=== PATIENT | female | born 1960 | race Two or more races ===

== ENCOUNTER 2022-09-29 14:12 | Outpatient (REF) | payer OTHER, SELFPAY ==
[2022-09-29 20:05] LABS: Influenza A PCR NEGATIVE (Negative); Influenza B PCR NEGATIVE (Negative); Resp Syncy Virus RNA Qual PCR NEGATIVE (Negative); SARS COV2 PCR INHOUSE NEGATIVE (Negative)
== END 2022-09-29 14:13 | disposition home or self-care (01) ==
LOC: HO.LAB 14:12
PROVIDERS: Visit Provider Nurse Practitioner Family
DX: R09.89 Other specified symptoms and signs involving the circulatory and respiratory systems (principal); R53.1 Weakness; Z20.822 Contact with and (suspected) exposure to COVID-19
CPT/HCPCS: 0241U

== ENCOUNTER 2022-09-29 14:56 | Outpatient (REF) | payer OTHER, SELFPAY ==
[2022-09-29 16:37] LABS: MANUAL DIFF FLAG NO
[2022-09-29 16:40] LABS: Basophils Percent Auto 0.5 % (0-2); Eosinophils Absolute Auto 0.4 X10*3/uL (0.0-0.4); Eosinophils Percent Auto 5.4 % (0-4); Hematocrit 40.7 % (37.0-47.0); Hemoglobin 13.4 g/dl (12.0-16.0); Imm Gran Abs Auto 0.02 X10*3/uL (0.00-0.03); Imm Gran Pct Auto 0.3 % (0.0-0.4); Lymphocytes Absolute Auto 3.2 X10*3/uL (1.2-4.9); Lymphocytes Percent Auto 40.9 % (20-40); Mean Corpuscular HGB Conc 32.9 g/dl (31.0-35.0); Mean Corpuscular Hemoglobin 28.2 pg (27.0-33.0); Mean Corpuscular Volume 85.5 fL (80.0-98.0); Mean Platelet Volume 10.8 fL (9.4-12.3); Monocytes Absolute Auto 0.4 X10*3/uL (0.1-1.2); Monocytes Percent Auto 5.6 % (2-11); Neutrophils Absolute Auto 3.7 x10*3/uL (2.0-8.3); Neutrophils Percent Auto 47.3 % (45-73); Platelet Count 285 X10*3/uL (160-400); Red Blood Count 4.76 X10*6/uL (4.20-5.50); Red Cell Distribution Width 12.5 % (11.0-16.0); White Blood Count 7.9 X10*3/uL (4.8-10.8)
[2022-09-29 16:49] LABS: Estimated Average Glucose 105 mg/dL; Hemoglobin A1c % 5.3 %
[2022-09-29 16:59] LABS: Alanine Aminotransferase 11 U/L (0-31); Albumin Level 4.6 g/dL (3.5-5.0); Alkaline Phosphatase 88 U/L (39-117); Anion Gap 13 (12-20); Aspartate Amino Transferase 14 U/L (5-31); Bilirubin Total 0.6 mg/dL (0.0-1.0); Blood Urea Nitrogen 14 mg/dL (9-16); Calcium 10.1 mg/dL (8.4-10.2); Carbon Dioxide 26 mmol/L (22-29); Chloride 106 mmol/L (96-108); Estimated Glomerular Filt Rate > 60; Glucose Random 75 mg/dL (60-115); Potassium 4.1 mmol/L (3.3-5.1); Sodium 141 mmol/L (135-145); Total Protein 7.8 g/dL (6.5-8.0)
[2022-09-29 17:14] LABS: TSH reflex Free T4 1.43 uIU/mL (0.32-4.0)
== END 2022-09-29 14:57 | disposition home or self-care (01) ==
LOC: HO.HMGCLDS 14:56
PROVIDERS: Visit Provider Nurse Practitioner Family
DX: R63.1 Polydipsia (principal); R35.89 Other polyuria; R53.1 Weakness; R09.89 Other specified symptoms and signs involving the circulatory and respiratory systems
CPT/HCPCS: 36415; 80053; 83036; 84443; 85025

== ENCOUNTER 2022-09-29 16:44 | Outpatient (REF) | payer OTHER, SELFPAY ==
[2022-09-29 16:56] LABS: Appearance Urine Clear; Color Urine Yellow; Glucose Urine UA Negative (Negative); Leukocyte Esterase Urine Moderate (2+) (Negative); Nitrite Urine Negative (Negative); Specific Gravity - Urine <= 1.005 (1.005-1.025); UMIC TRIGGER UACC YES; Urine Blood Negative (Negative); Urine Ketones Negative (Negative); Urine Protein Negative (Neg-Trace)
[2022-09-29 16:59] LABS: Bacteria Urine None Seen (None Seen); Hyaline Casts Urine 0-2 /LPF (0-2); RBC Urine 0-2 /HPF (0-2); Squamous Epithelial Cell Urine 0-2 /HPF (0-2); UACC Culture Trigger YES
== END 2022-09-29 16:45 | disposition home or self-care (01) ==
LOC: HO.LNP 16:44
PROVIDERS: Visit Provider Nurse Practitioner Family
DX: R53.1 Weakness (principal); R09.89 Other specified symptoms and signs involving the circulatory and respiratory systems; R63.1 Polydipsia; R35.89 Other polyuria
CPT/HCPCS: 81001; 87086

== ENCOUNTER 2022-12-27 10:38 | Outpatient (AMB) | payer OTHER, SELFPAY ==
--- NOTE | 2022-12-27 10:39 | A.OFFPC_ITS ---
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 Intake Note: OD 20/25 OU 20/25 US 20 Allergies No Known Allergies Allergy (Verified 12/27/22 10:39) Medication List - Last Reconciled 12/27/22 by Zeenat Price MD No Known Home Meds Tobacco use date assessed: 12/27/22 Dental Screening Dental Screen Date: 12/27/22 Did you have a dental visit in the last 12 months?: No Did you have a dental problem in the last 6 months where you did not have access to dental care?: No Was dental information given to patient?: Yes HPI echocardiography radiology technologist Est care HPI Details Patient is a 62-year-old female came in today for establish care and physical examination Patient says that she has a history of high blood pressure, she used to be on medication and then she started when she ran out and stopped going to her doctor. It has been awhile since she has taken medication. Her blood pressure is 130/68, she is here with her daughter, both of them notified to get a blood pressure monitor and start logging blood pressure at home bring the log along next visit Meanwhile observe no salt diet. Patient has been suffering from depression for a while and is requesting assistance with therapy and medication I have sent Lexapro 10 mg tablet patient is to take half a tablet for a week and then full tablet Her BMI is 35.7 patient is obese, and is requesting a dietary consultation. Mammogram is due Pap smear due Colonoscopy due Patient also have intermittent asthma and is requesting ProAir script which was sent for her. I have ordered labs to be done fasting She wanted eye exam which showed 2024 vision both sides On examination her right ear is filled with cerumen she is requesting irrigation of her ear which was provided. She also have a chronic right shoulder pain and for that physical therapy was ordered. Patient will return in 3 weeks for follow-up appointment COUNTS INCLUDE 234 BEDS AT THE [facility] Social History Housing: Apartment Patient Tobacco Use Status: Never used Tobacco e-Cigarette/Vaping Use: Never Used service: No Current occupational status: unemployed Cognitive needs: No Hearing needs: No Vision needs: No Questionnaire PHQ-9 Over the last 2 weeks, how often have you been bothered by any of the following problems? 1. Little interest or pleasure in doing things: not at all 2. Feeling down, depressed, or hopeless: not at all 3. Trouble falling or staying asleep, or sleeping too much: several days 4. Feeling tired or having little energy: several days 5. Poor appetite or overeating: several days 6. Feeling bad about yourself - or that you are a failure or have let yourself or your family down: not at all 7. Trouble concentrating on things, such as reading the newspaper or watching television: not at all 8. Moving or speaking so slowly that other people could have noticed. Or the opposite - being so fidgety or restless that you have been moving around a lot more than usual: not at all 9. Thoughts that you would be better off or of hurting yourself in some way: not at all Total score: 3 Depression Screening Interpretation: Negative 44066 - PHQ-9 Billing: Yes Source: Developed by Drs. Miguel James, Debra Choi, Kevan Faye and colleagues, with an educational susanna from [employer]. Thrive Questionnaire Date Thrive assessed: 12/27/22 I am a: Patient What is your living situation today?: I have a steady place to live Within the past 12 months, did the food you bought not last and you didn't have the money to get more?: Never true Within the past 12 months, did you worry whether your food would run out before you got money to buy more?: Never true Do you have trouble paying for medicines?: No Do you have trouble getting transportation to medical appointments?: No Do you have trouble paying your heating and electricity bill?: No Do you have trouble taking care of your child, family member or friend?: No Do you have trouble with day-to-day activities such as bathing, preparing meals, shopping, managing finances, etc.?: No Are you currently unemployed and looking for a job?: No Are you interested in more education?: No AUDIT C Alcohol Use Questionnaire (AUDIT-C) 1. How often do you have a drink containing alcohol?: Never 3. How often do you have six or more drinks on one occasion?: Never Total Score: 0 Score Reviewed/Action Taken: Yes DAMON-7 AMB Questionnaire DAMON-7 Date DAMON - 7 assessed: 12/27/22 Feeling nervous, anxious, or on edge: 0 = Not at all Not being able to stop or control worryin = Not at all Worrying too much about different things: 2 = More than half the days Trouble relaxin = More than half the days Being so restless that it is hard to sit still: 0 = Not at all Becoming easily annoyed or irritable: 2 = More than half the days Feeling afraid as if something awful might happen: 0 = Not at all Total DAMON-7 score (0-4 normal; 5-9 mild; 10-14 moderate; 15-21 severe): 6 Source: Developed by Drs. Miguel James, Debra Choi, Kevan Faye and colleagues, with an educational susanna from [employer]. DAMON-7 Assessment Billing DAMON-7 Assessment Tool: DAMON-7 Assessment 27355 Review of Systems Const Denies chills, Denies fever(s) and Denies headache(s) Eyes Denies blurry vision ENT Denies headache(s), Denies nasal discharge, Denies nasal obstruction, Denies odynophagia and Denies sinus pain Card Denies chest pain at rest and Denies chest pain with activity Resp Denies cough and Denies hemoptysis GI Denies diarrhea, Denies odynophagia, Denies vomiting and Denies hematemesis Reports as per HPI Musc Denies abnormal gait Skin/Breast Reports as per HPI Neuro Denies Neuro-related abnormal movements, Denies Abnormal speech present, Denies abnormal gait, Denies headache(s) and Denies Sensory deficit (Neuro) Psych Denies mood swings and Denies paranoia Endo Reports as per HPI Brannon/Lymph Reports as per HPI Aller/Immun Reports as per HPI Physical exam (Primary Care) Vital Signs: Last Vital Signs Pulse 70 12/27/22 10:45 BP 130/68 12/27/22 10:45 Pulse Ox 95 12/27/22 10:45 Oxygen Delivery Method Room Air 12/27/22 10:45 BMI result Body Mass Index 35.7 Tobacco/Smoking Status: Tobacco use Status Tobacco use date assessed 12/27/22 12/27/22 10:40 Patient Tobacco Use Status Never used Tobacco 12/27/22 10:40 e-Cigarette/Vaping Use Never Used 12/27/22 10:40 PHQ-9: PHQ-9 Score PHQ-9: Total score 3 12/27/22 11:14 Depression Screening Interpretation: Negative Thrive Assessment: Date of Thrive Assessment Date Thrive assessed 12/27/22 12/27/22 10:50 Const General: cooperative, comfortable and no acute distress Orientation/consciousness: patient oriented x3 HENMT Other: Right ear filled with cerumen Head: Yes normocephalic and Yes atraumatic Eyes General: appearance normal, both eyes and all related structures Pupils: Equal, round and reactive pupils present EOM: EOMs intact bilaterally Neck Neck: Yes supple and No lymphadenopathy Thyroid: Thyroid normal Lymphatic: no lymphadenopathy noted Chest Breast/axilla palpation: normal palpation of the breasts Resp Effort & Inspection: normal respiratory effort and able to speak in complete sentences Auscultation: clear to auscultation bilaterally Cardio Heart sounds: S1 normal heart sound present and S2 normal heart sound present GI Palpation (GI): Soft to palpation and nontender Auscultation: normal bowel sounds General: Yes no CVA tenderness Back/Spine/Pelvis Back: no CVA tenderness Skin General skin exam: elasticity normal and turgor normal Neuro General: patient oriented x3 and gait normal Cranial nerves: Yes Equal, round and reactive pupils present Speech: No Abnormal speech present Sensory Exam: No Sensory deficit (Neuro) Coordination: tandem gait normal and Romberg test negative Extrem General: Yes normal exam except as noted and No edema Office Procedures Cerumen Removal From which ear canal was the cerumen removed: right Removal: irrigation Notes: patient tolerated procedure well, no complications and ear canal clear [id number] Irrigation/Lavage Assessment and Plan Assessment & Plan (1) Encounter for general adult medical examination with abnormal findings: Code(s): Z00.01 - Encounter for general adult medical examination with abnormal findings (2) Shoulder pain, left: Code(s): M25.512 - Pain in left shoulder Qualifiers: Chronicity: chronic Qualified Code(s): M25.512 - Pain in left shoulder; G89.29 - Other chronic pain (3) Obesity due to excess calories: Code(s): E66.09 - Other obesity due to excess calories Qualifiers: Body mass index: BMI 35.0-35.9 Obesity classification: adult class 2 (BMI 35 - 39.9) Serious obesity comorbidity presence: with serious comorbidity Qualified Code(s): E66.01 - Morbid (severe) obesity due to excess calories; Z68.35 - Body mass index [BMI] 35.0-35.9, adult (4) Major depression, recurrent: Code(s): F33.9 - Major depressive disorder, recurrent, unspecified Qualifiers: Active/Remission status: currently active Major depression episode severity: moderate Qualified Code(s): F33.1 - Major depressive disorder, recurrent, moderate (5) Elevated blood pressure reading: Code(s): R03.0 - Elevated blood-pressure reading, without diagnosis of hypertension (6) Asthma, mild intermittent: Code(s): J45.20 - Mild intermittent asthma, uncomplicated Qualifiers: Asthma complication type: uncomplicated Qualified Code(s): J45.20 - Mild intermittent asthma, uncomplicated (7) Impacted cerumen, right ear: Code(s): H61.21 - Impacted cerumen, right ear (8) Colon cancer screening: Code(s): Z12.11 - Encounter for screening for malignant neoplasm of colon Plan Patient is a 62-year-old female came in today for establish care and physical examination Patient says that she has a history of high blood pressure, she used to be on medication and then she started when she ran out and stopped going to her doctor. It has been awhile since she has taken medication. Her blood pressure is 130/68, she is here with her daughter, both of them no tified to get a blood pressure monitor and start logging blood pressure at home bring the log along next visit Meanwhile observe no salt diet. Patient has been suffering from depression for a while and is requesting assistance with therapy and medication I have sent Lexapro 10 mg tablet patient is to take half a tablet for a week and then full tablet Her BMI is 35.7 patient is obese, and is requesting a dietary consultation. Mammogram is due Pap smear due Colonoscopy due Patient also have intermittent asthma and is requesting ProAir script which was sent for her. I have ordered labs to be done fasting She wanted eye exam which showed 2024 vision both sides On examination her right ear is filled with cerumen she is requesting irrigation of her ear which was provided. She also have a chronic right shoulder pain and for that physical therapy was ordered. Patient will return in 3 weeks for follow-up appointment Orders: Orders Complete Blood Count Auto Diff Today E66.09 - Other obesity due to excess calories, F33.9 - Major depressive disorder, recurrent, unspecified, H61.21 - Impacted cerumen, right ear, J45.20 - Mild intermittent asthma, uncomplicated, M25.512 - Pain in left shoulder, R03.0 - Elevated blood-pressure reading, without diagnosis of hypertension, Z00.01 - Encounter for general adult medical examination with abnormal findings Lipid Panel Today E66.09 - Other obesity due to excess calories, F33.9 - Major depressive disorder, recurrent, unspecified, H61.21 - Impacted cerumen, right ear, J45.20 - Mild intermittent asthma, uncomplicated, M25.512 - Pain in left shoulder, R03.0 - Elevated blood-pressure reading, without diagnosis of hypertension, Z00.01 - Encounter for general adult medical examination with abnormal findings PT Evaluation and Treatment Today M25.512 - Pain in left shoulder Comprehensive [place]. Panel Fast Today E66.09 - Other obesity due to excess calories, F33.9 - Major depressive disorder, recurrent, unspecified, H61.21 - Impacted cerumen, right ear, J45.20 - Mild intermittent asthma, uncomplicated, M25.512 - Pain in left shoulder, R03.0 - Elevated blood-pressure reading, without diagnosis of hypertension, Z00.01 - Encounter for general adult medical examination with abnormal findings TSH reflex Free T4 Today E66.09 - Other obesity due to excess calories, F33.9 - Major depressive disorder, recurrent, unspecified, H61.21 - Impacted cerumen, right ear, J45.20 - Mild intermittent asthma, uncomplicated, M25.512 - Pain in left shoulder, R03.0 - Elevated blood-pressure reading, without diagnosis of hypertension, Z00.01 - Encounter for general adult medical examination with abnormal findings MM tomosynthesis screening BI Today Z12.31 - Encounter for screening mammogram for malignant neoplasm of breast Referrals [facility] Referral Z01.419 - Encounter for gynecological examination (general) (routine) without abnormal findings Gastroenterology Referral Z12.11 - Encounter for screening for malignant neoplasm of colon Medications: New albuterol sulfate 90 mcg/actuation (ProAir HFA) 1 inh inhalation QID PRN 18 grams 0RF shortness of breath or wheezing 30 days escitalopram oxalate (Lexapro) 10 mg PO DAILY 30 tabs 0RF Coding Level of Care Code New Pt Prev Care 40-64y(49242) Diagnoses Encounter for general adult medical examination with abnormal findings Z00.01 Chronic left shoulder pain M25.512; G89.29 Chronicity: chronic Class 2 severe obesity due to excess calories with serious comorbidity and body mass index (BMI) of 35.0 to 35.9 in adult E66.01; Z68.35 Body mass index: BMI 35.0-35.9 Obesity classification: adult class 2 (BMI 35 - 39.9) Serious obesity comorbidity presence: with serious comorbidity Moderate episode of recurrent major depressive disorder F33.1 Active/Remission status: currently active Major depression episode severity: moderate Elevated blood pressure reading R03.0 Mild intermittent asthma without complication J45.20 Asthma complication type: uncomplicated Impacted cerumen, right ear H61.21 Colon cancer screening Z12.11 CPT Codes Vision Screening - Vision Screenin - Vision Screening ([id number]) Office Procedure - CPT: 00453-Xng Irrigation/Lavage ([id number]) Additional Codes DAMON-7 Assessment Billing - DAMON-7 Assessment Tool: DAMON-7 Assessment 23443 ([id number]) Vision Screening Right Eye: 20/25 Left Eye: 20/25 Bilateral: 20/25 Comments: Uncorrected 20/25 86601 - Vision Screening
[2022-12-27 10:45] VITALS: BP 130/68; PULSE 70; O2SAT 95; BMI 35.7
== END 2022-12-27 11:23 | disposition home or self-care (01) ==
PROVIDERS: Visit Provider Internal Medicine
DX: Z00.00 Encounter for general adult medical examination without abnormal findings (principal); E66.01 Morbid (severe) obesity due to excess calories; Z68.35 Body mass index [BMI] 35.0-35.9, adult; H61.21 Impacted cerumen, right ear; Z01.00 Encounter for examination of eyes and vision without abnormal findings; F33.1 Major depressive disorder, recurrent, moderate; J45.20 Mild intermittent asthma, uncomplicated; M25.512 Pain in left shoulder; G89.29 Other chronic pain; R03.0 Elevated blood-pressure reading, without diagnosis of hypertension
CPT/HCPCS: 69209; 99173; 99386

== ENCOUNTER 2023-01-11 16:00 | Outpatient (RCR) | payer OTHER, SELFPAY ==
--- NOTE | 2023-01-06 14:38 | MHC.PT.EP ---
[facility] [place] Office [place] Office [place] Office [address] [phone] F: [phone] F: [phone] F: [phone] F: [phone] Physical Therapy Plan of Care Date of Evaluation: 01/06/23 Date of Surgery: none Diagnosis: Pain in R shoulder Assessment: Patient is a 62 year old R handed female who presents with s/s consistent with R shoulder pain. 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 Patient past medical history is unremarkable. Current impairments include pain, posture, ROM, strength, activity tolerance and functional mobility. Functional limitations include decreased ability to sleep, dress, lift, carry, push and pull. Patient is motivated with good rehab potential. Skilled PT will address impairments and functional limitations in order to achieve goals. Frequency and Duration: The patient will be seen 2x/week for 5 weeks Short Term Goals: I with HEP - 2 weeks AROM full and pain free - 3 weeks Pain free don/doff cloths and sleeping - 3 weeks Detention Goals: SPADI 20/130 or better - 5 weeks Strength 4+/5 grossly - 5 weeks Pain free return to all daily activities - 5 weeks Treatment Plan: Modalities to reduce pain, spasms and effusion. Manual therapy to restore motion and function. Therapeutic exercise to improve strength and flexibility. Neuromuscular re-education for posture and balance. Therapeutic activities to return to functional activities of daily living. Electronically signed by: Naeem Arias, PT Please sign and return to therapist. Thank you for your referral.
--- NOTE | 2023-04-18 07:53 | MHC.PT.DC ---
[facility] [place] Office [place] Office [place] Office [address] Oliverio Dixon [address] [phone] F: [phone] F: [phone] F: [phone] F: [phone] Physical Therapy Discharge Report Diagnosis: Pain in R shoulder Date of Surgery: none Date of Evaluation: 01/06/23 Date of Discharge: 03/04/23 Treatments to Date: 2 Cancellations to Date: No Shows to Date: Discharge Status: Independent with HEP Discharge Summary: Pt ROM WNL and is pain free with all exs. Pt only had fatigue after PRE's. Pt wishes to be her last visit due to no pain and having normal ROM. Pt DC with PRE's Patient is a 62 year old R handed female who presents with s/s consistent with R shoulder pain. 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 Patient past medical history is unremarkable. Current impairments include pain, posture, ROM, strength, activity tolerance and functional mobility. Functional limitations include decreased ability to sleep, dress, lift, carry, push and pull. Patient is motivated with good rehab potential. Skilled PT will address impairments and functional limitations in order to achieve goals. Electronically signed by: Naeem Arias, PT Please sign and return to therapist. Thank you for your referral.
== END 2023-04-18 07:53 | disposition home or self-care (01) ==
LOC: HO.PTCHIC 16:00
PROVIDERS: PCP Internal Medicine; Visit Provider Internal Medicine
DX: M25.511 Pain in right shoulder (principal)
CPT/HCPCS: 97110; 97161

== ENCOUNTER 2023-02-18 07:30 | Outpatient (REF) | payer OTHER, SELFPAY ==
[2023-02-18 11:07] LABS: MANUAL DIFF FLAG NO
[2023-02-18 11:11] LABS: Basophils Percent Auto 0.3 % (0-2); Eosinophils Absolute Auto 0.2 X10*3/uL (0.0-0.4); Eosinophils Percent Auto 3.4 % (0-4); Hematocrit 38.8 % (37.0-47.0); Hemoglobin 12.7 g/dl (12.0-16.0); Imm Gran Abs Auto 0.01 X10*3/uL (0.00-0.03); Imm Gran Pct Auto 0.2 % (0.0-0.4); Lymphocytes Absolute Auto 2.2 X10*3/uL (1.2-4.9); Lymphocytes Percent Auto 38.4 % (20-40); Mean Corpuscular HGB Conc 32.7 g/dl (31.0-35.0); Mean Corpuscular Hemoglobin 28.2 pg (27.0-33.0); Mean Corpuscular Volume 86.2 fL (80.0-98.0); Mean Platelet Volume 11.3 fL (9.4-12.3); Monocytes Absolute Auto 0.3 X10*3/uL (0.1-1.2); Monocytes Percent Auto 5.5 % (2-11); Neutrophils Percent Auto 52.2 % (45-73); Platelet Count 284 X10*3/uL (160-400); Red Cell Distribution Width 12.8 % (11.0-16.0); White Blood Count 5.8 X10*3/uL (4.8-10.8)
[2023-02-18 11:31] LABS: Alanine Aminotransferase 10 U/L (0-31); Albumin Level 4.2 g/dL (3.5-5.0); Alkaline Phosphatase 85 U/L (39-117); Anion Gap 12 (12-20); Aspartate Amino Transferase 13 U/L (5-31); Bilirubin Total 0.5 mg/dL (0.0-1.0); Blood Urea Nitrogen 11 mg/dL (9-16); Calcium 9.4 mg/dL (8.4-10.2); Carbon Dioxide 25 mmol/L (22-29); Chloride 109 mmol/L (96-108); Cholesterol 194 mg/dL (<200); Estimated Glomerular Filt Rate > 60; Glucose Fasting 102 mg/dL (60-99); HDL Cholesterol 47 mg/dL (>40); LDL Cholesterol Calculated 127 mg/dL (<100); Potassium 4.1 mmol/L (3.3-5.1); Sodium 142 mmol/L (135-145); Total Protein 7.1 g/dL (6.5-8.0); Triglycerides 104 mg/dL (<150)
[2023-02-18 11:51] LABS: TSH reflex Free T4 1.27 uIU/mL (0.32-4.0)
== END 2023-02-18 07:31 | disposition home or self-care (01) ==
LOC: HO.HMGCLDS 07:30
PROVIDERS: PCP Internal Medicine; Visit Provider Internal Medicine
DX: Z00.01 Encounter for general adult medical examination with abnormal findings (principal); E66.09 Other obesity due to excess calories; F33.9 Major depressive disorder, recurrent, unspecified; M25.512 Pain in left shoulder; R03.0 Elevated blood-pressure reading, without diagnosis of hypertension; J45.20 Mild intermittent asthma, uncomplicated; H61.21 Impacted cerumen, right ear
CPT/HCPCS: 36415; 80053; 80061; 84443; 85025

== ENCOUNTER 2023-02-22 15:55 | Outpatient (AMB) | payer OTHER, SELFPAY ==
--- NOTE | 2023-02-22 15:57 | MHC.OFFVIS ---
Intake Vital Signs 02/22/23 16:01 Height 5 ft 2 in Weight 194 lb 0.108 oz BMI 35.5 BP 165/72 H Blood Pressure Location Lt brachial Position Sitting Pulse 66 Intake Visit Reasons: Colonoscopy Screening Intake Note: Patient presents to in office visit today as a new patient for colonoscopy screening. CC: Patient denies having any GI concerns or symptoms today. She has never had a colonoscopy done before. Allergies No Known Allergies Allergy (Verified 02/22/23 16:04) HPI Colonoscopy Screening HPI Details 62 year old? female here today for pre colonoscopy screening.? Patient was sent to us by her PCP.? This is her first colonoscopy screening.? Patient denies any gastrointestinal symptoms in the past or at present.? Denies any personal or family history of gastrointestinal disease, colon polyps, or cancer.? Denies history of difficulty with sedation or anesthesia in the past.? Negative for history of sleep apnea.? Denies any history of cardiac, renal, pulmonary, or hepatic disease.?? No history of infectious? diseases like hepatitis A, B, C, HIV or tuberculosis.? Patient is not on any anticoagulation therapy. [facility] Surgical History (Updated 02/22/23 @ 16:05 by EULALIA Friend) No pertinent past surgical history Family History (Updated 02/22/23 @ 16:05 by EULALIA Friend) Father Brain cancer Housing: Apartment Patient Tobacco Use Status: Never used Tobacco e-Cigarette/Vaping Use: Never Used service: No Current occupational status: unemployed Cognitive needs: No Hearing needs: No Vision needs: No Review of Systems Const Denies weight gain and Denies weight loss ENT Reports no additional complaints, Denies dysphagia and Denies odynophagia Card Reports no additional complaints Resp Reports no additional complaints GI Denies abdominal pain, Denies belching, Denies melena, Denies bloating, Denies change in bowel habits, Denies dysphagia, Denies excessive flatus, Denies dyspepsia, Denies heartburn, Denies diarrhea, Denies loose stools, Denies nausea, Denies odynophagia and Denies vomiting Musc Reports no additional complaints Neuro Reports no additional complaints Psych Reports no additional complaints Endo Reports no additional complaints Physical Exam Vital Signs: Last Vital Signs Pulse 66 02/22/23 16:01 BP 165/72 H 02/22/23 16:01 BMI result Body Mass Index 35.5 Const General: healthy appearing, no acute distress and well developed Nutritional Appearance: well nourished Orientation/consciousness: patient oriented x3 HEENT Head: Yes normal to inspection, Yes normocephalic and Yes atraumatic Face and sinus: Yes normal facial exam Mouth: Normal oral and palatal mucosa present Throat: Yes posterior oropharynx normal, Yes tonsils normal and Yes uvula midline Eyes General: appearance normal, both eyes and all related structures Neck Neck: Yes normal visual inspection, Yes full ROM and Yes trachea midline Thyroid: Thyroid normal Resp Effort & Inspection: normal respiratory effort, able to speak in complete sentences, no tracheal deviation and symmetric chest movement Auscultation: clear to auscultation bilaterally Cardio Rate: regular rate Heart sounds: S1 normal heart sound present and S2 normal heart sound present GI Inspection: Yes normal to inspection, No distended and Yes obesity Palpation (GI): Soft to palpation, not firm, nontender and No hepatosplenomegaly present Auscultation: normal bowel sounds General: Yes no CVA tenderness Back/Spine/Pelvis Back: no CVA tenderness Skin General skin exam: elasticity normal, turgor normal and dry skin Neuro General: patient oriented x3 Psych Appearance: grossly normal Mental Status: mental status grossly normal Thought process: Normal thought process present Assessment & Plan Assessment & Plan (1) Colon cancer screening: Code(s): Z12.11 - Encounter for screening for malignant neoplasm of colon Plan Patient denies any GI, cardiac or respiratory symptoms.? Denies any issues with anesthesia in the past.? Denies any history of sleep apnea.? No history infectious diseases in the past or present.? Not on any anticoagulation therapy.? No family or personal history of colon cancer or polyps.? Patient denies melena, hematochezia, unintentional weight loss or ribbon like stools.? Discussed at length the pre-procedure,? prep, diet & medications as well as what to expect prior, during and after the procedure.?? Stressed the importance of good bowel prep. ?Recommended the use of Vaseline or Calmoseptine OTC & baby wipes with bowel movements to promote comfort.? ?Patient verbalizes understanding and agrees to plan of care.? She was given the opportunity to ask questions and all questions answered.? We will see her after the procedure.? Medications: New bisacodyl (Dulcolax (bisacodyl)) take 4 tabs at noon the day before your colonoscopy 20 mg (4 x 5 mg) PO ONCE 1 day 4 tabs 0RF Z12.11 - Encounter for screening for malignant neoplasm of colon polyethylene glycol 3350 (Miralax) As directed by gastroenterology department at [facility] 238 grams PO ONCE 238 grams 0RF Z12.11 - Encounter for screening for malignant neoplasm of colon Coding Level of Care Code New Pt Level 3 (88410) Diagnoses Colon cancer screening Z12.11 Time Spent (min) 40 Comment 30 minutes spent with patient and additional 10 minutes spent reviewing her records
[2023-02-22 16:01] VITALS: BP 165/72; PULSE 66; BMI 35.5
== END 2023-02-22 16:48 | disposition home or self-care (01) ==
PROVIDERS: PCP Internal Medicine; Visit Provider Nurse Practitioner Family
DX: Z12.11 Encounter for screening for malignant neoplasm of colon (principal); Z01.818 Encounter for other preprocedural examination
CPT/HCPCS: S0285

== ENCOUNTER → 2023-02-22 15:55 | Outpatient (BNVA) | payer OTHER, SELFPAY | PROVIDERS: PCP Internal Medicine; Visit Provider Nurse Practitioner Family ==

== ENCOUNTER 2023-04-07 13:58 | Outpatient (AMB) | payer OTHER, SELFPAY ==
[2023-04-07 14:17] VITALS: BP 130/82; PULSE 68; O2SAT 98; BMI 35.8
--- NOTE | 2023-04-07 14:17 | MHC.PC.OV ---
Vital Signs 04/07/23 14:17 Height 5 ft 2 in Weight 195 lb 8 oz BMI 35.8 BP 130/82 Blood Pressure Location Lt brachial Position Sitting Pulse 68 Pulse Source Pulse Oximeter Pulse Oximetry (%) 98 Oxygen Delivery Method Room Air Intake Visit Reasons: 3 month Follow up Allergies No Known Allergies Allergy (Verified 04/07/23 14:20) Medication List - Last Reconciled 04/07/23 by Zeenat Price MD albuterol sulfate 90 mcg/actuation (ProAir HFA) 1 inh inhalation QID PRN 30 days bisacodyl (Dulcolax (bisacodyl)) 20 mg (4 x 5 mg) PO ONCE 1 day escitalopram oxalate (Lexapro) 10 mg PO DAILY polyethylene glycol 3350 (Miralax) 238 grams PO ONCE Tobacco use date assessed: 04/07/23 Dental Screening Dental Screen Date: 04/07/23 Did you have a dental visit in the last 12 months?: No Did you have a dental problem in the last 6 months where you did not have access to dental care?: No Was dental information given to patient?: Patient has dentist HPI 3 month Follow up HPI Details Patient is 62-year-old female came today for follow-up appointment Anxiety/depression is better with Lexapro however patient ran out of medication in February and could not get the refill, I have sent the refill again patient was on 10 mg and responded well to medication I am sending 20 mg she may take half a tablet for couple of weeks and then 20 mg tablet. Intermittent asthma is stable she is using albuterol inhaler sometimes 2 times a week and sometimes not at all BMI is elevated need to lose weight She also have impaired fasting sugar We will be repeating labs again before next visit in 4 months Blood pressure is in prehypertensive range she has taking no medication currently. [facility] Surgical History No pertinent past surgical history Family History Father Brain cancer Social History Housing: Apartment Patient Tobacco Use Status: Never used Tobacco e-Cigarette/Vaping Use: Never Used service: No Current occupational status: unemployed Cognitive needs: No Hearing needs: No Vision needs: No Questionnaire PHQ-9 Over the last 2 weeks, how often have you been bothered by any of the following problems? 1. Little interest or pleasure in doing things: not at all 2. Feeling down, depressed, or hopeless: not at all 3. Trouble falling or staying asleep, or sleeping too much: not at all 4. Feeling tired or having little energy: not at all 5. Poor appetite or overeating: not at all 6. Feeling bad about yourself - or that you are a failure or have let yourself or your family down: not at all 7. Trouble concentrating on things, such as reading the newspaper or watching television: not at all 8. Moving or speaking so slowly that other people could have noticed. Or the opposite - being so fidgety or restless that you have been moving around a lot more than usual: not at all 9. Thoughts that you would be better off or of hurting yourself in some way: not at all Total score: 0 Depression Screening Interpretation: Negative Depression Screening Done: Yes 80192 - PHQ-9 Billing: Yes Source: Developed by Drs. Miguel James, Debra Choi, Kevan Faye and colleagues, with an educational susanna from [employer]. Thrive Questionnaire Date Thrive assessed: 04/07/23 I am a: Patient What is your living situation today?: I have a steady place to live Within the past 12 months, did the food you bought not last and you didn't have the money to get more?: Never true Within the past 12 months, did you worry whether your food would run out before you got money to buy more?: Never true Do you have trouble paying for medicines?: No Do you have trouble getting transportation to medical appointments?: No Do you have trouble paying your heating and electricity bill?: No Do you have trouble taking care of your child, family member or friend?: No Do you have trouble with day-to-day activities such as bathing, preparing meals, shopping, managing finances, etc.?: No Are you currently unemployed and looking for a job?: No Are you interested in more education?: No Please select the resources that you would like help with: None Currently or been in a relationship where the following occur: no concerns reported AUDIT C Alcohol Use Questionnaire (AUDIT-C) 1. How often do you have a drink containing alcohol?: 2-4 times a month 2. How many drinks containing alcohol do you have on a typical day when you are drinking?: 1 or 2 3. How often do you have six or more drinks on one occasion?: Never Total Score: 2 Score Reviewed/Action Taken: Yes DAMON-7 AMB Questionnaire DAMON-7 Date DAMON - 7 assessed: 04/07/23 Feeling nervous, anxious, or on edge: 2 = More than half the days Not being able to stop or control worryin = More than half the days Worrying too much about different things: 1 = Several days Trouble relaxin = Not at all Being so restless that it is hard to sit still: 0 = Not at all Becoming easily annoyed or irritable: 1 = Several days Feeling afraid as if something awful might happen: 0 = Not at all Total DAMON-7 score (0-4 normal; 5-9 mild; 10-14 moderate; 15-21 severe): 6 Source: Developed by Drs. Miguel James, Debra Choi, Kevan Faye and colleagues, with an educational susanna from [employer]. DAMON-7 Assessment Billing DAMON-7 Assessment Tool: DAMON-7 Assessment 69367 Review of Systems Const Denies chills and Denies fever(s) ENT Denies epistaxis and Denies nasal discharge Card Denies chest pain Resp Denies chest congestion, Denies cough and Denies hemoptysis GI Denies diarrhea and Denies nausea Skin/Breast Denies rash Neuro Reports no additional complaints Psych Reports no additional complaints Endo Reports no additional complaints Physical exam (Primary Care) Vital Signs: Last Vital Signs Pulse 68 04/07/23 14:17 BP 130/82 04/07/23 14:17 Pulse Ox 98 04/07/23 14:17 Oxygen Delivery Method Room Air 04/07/23 14:17 BMI result Body Mass Index 35.8 Tobacco/Smoking Status: Tobacco use Status Tobacco use date assessed 04/07/23 04/07/23 14:21 Patient Tobacco Use Status Never used Tobacco 04/07/23 14:21 e-Cigarette/Vaping Use Never Used 04/07/23 14:21 PHQ-9: PHQ-9 Score PHQ-9: Total score 0 04/07/23 14:54 Depression Screening Interpretation: Negative Thrive Assessment: Date of Thrive Assessment Date Thrive assessed 04/07/23 04/07/23 14:54 Currently or been in a relationship where the following occur: no concerns reported Const General: cooperative, comfortable and no acute distress Orientation/consciousness: patient oriented x3 HENMT Head: Yes normocephalic Eyes General: appearance normal, both eyes and all related structures Neck Neck: Yes supple Resp Effort & Inspection: normal respiratory effort, no cough and no stridor Cardio Rhythm: regular rhythm Heart sounds: S1 normal heart sound present and S2 normal heart sound present Skin General skin exam: turgor normal Neuro General: patient oriented x3, tone normal and moves all extremities Extrem Right lower extremity: no edema Left lower extremity: no edema Assessment and Plan Assessment & Plan (1) Major depression, recurrent: Code(s): F33.9 - Major depressive disorder, recurrent, unspecified Qualifiers: Active/Remission status: currently active Major depression episode severity: moderate Qualified Code(s): F33.1 - Major depressive disorder, recurrent, moderate (2) Obesity due to excess calories: Code(s): E66.09 - Other obesity due to excess calories Qualifiers: Obesity classification: adult class 2 (BMI 35 - 39.9) Serious obesity comorbidity presence: with serious comorbidity Body mass index: BMI 35.0-35.9 Qualified Code(s): E66.01 - Morbid (severe) obesity due to excess calories; Z68.35 - Body mass index [BMI] 35.0-35.9, adult (3) Asthma, mild intermittent: Code(s): J45.20 - Mild intermittent asthma, uncomplicated Qualifiers: Asthma complication type: uncomplicated Qualified Code(s): J45.20 - Mild intermittent asthma, uncomplicated (4) Impaired fasting blood sugar: Code(s): R73.01 - Impaired fasting glucose Plan Patient is 62-year-old female came today for follow-up appointment Anxiety/depression is better with Lexapro however patient ran out of medication in February and could not get the refill, I have sent the refill again patient was on 10 mg and responded well to medication I am sending 20 mg she may take half a tablet for couple of weeks and then 20 mg tablet. Intermittent asthma is stable she is using albuterol inhaler sometimes 2 times a week and sometimes not at all BMI is elevated need to lose weight She also have impaired fasting sugar We will be repeating labs again before next visit in 4 months Blood pressure is in prehypertensive range she has taking no medication currently. Medications: New albuterol sulfate 90 mcg/actuation (Ventolin HFA) 1 inh inhalation QID 30 days PRN 6.7 grams 6RF shortness of breath or wheezing Changed From escitalopram oxalate (Lexapro) 10 mg PO DAILY 90 tabs 1RF To escitalopram oxalate 20 mg PO DAILY 90 tabs 1RF Refilled escitalopram oxalate (Lexapro) 10 mg PO DAILY 90 tabs 1RF Coding Level of Care Code Est Pt Level 4 (97964) Diagnoses Moderate episode of recurrent major depressive disorder F33.1 Active/Remission status: currently active Major depression episode severity: moderate Class 2 severe obesity due to excess calories with serious comorbidity and body mass index (BMI) of 35.0 to 35.9 in adult E66.01; Z68.35 Obesity classification: adult class 2 (BMI 35 - 39.9) Serious obesity comorbidity presence: with serious comorbidity Body mass index: BMI 35.0-35.9 Mild intermittent asthma without complication J45.20 Asthma complication type: uncomplicated Impaired fasting blood sugar R73.01 Additional Codes DAMON-7 Assessment Billing - DAMON-7 Assessment Tool: DAMON-7 Assessment [id number] ([id number])
== END 2023-04-07 14:42 | disposition home or self-care (01) ==
PROVIDERS: Visit Provider Internal Medicine
DX: F33.1 Major depressive disorder, recurrent, moderate (principal); E66.01 Morbid (severe) obesity due to excess calories; Z68.35 Body mass index [BMI] 35.0-35.9, adult; J45.20 Mild intermittent asthma, uncomplicated; R73.01 Impaired fasting glucose
CPT/HCPCS: 99214

== ENCOUNTER 2023-08-25 12:00 | Outpatient (AMB) | payer OTHER, SELFPAY ==
--- NOTE | 2023-08-25 12:01 | MHC.PC.OV ---
Vital Signs 08/25/23 12:04 Height 5 ft 2 in Weight 185 lb BMI 33.8 BP 120/90 H Blood Pressure Location Lt brachial Position Sitting Pulse 68 Pulse Source Pulse Oximeter Pulse Oximetry (%) 97 Oxygen Delivery Method Room Air Intake Visit Reasons: 6 month follow up Allergies No Known Allergies Allergy (Verified 04/07/23 14:20) Medication List - Last Reconciled 08/25/23 by Zeenat Price MD albuterol sulfate 90 mcg/actuation (Ventolin HFA) 1 inh inhalation QID PRN 30 days bisacodyl (Dulcolax (bisacodyl)) 20 mg (4 x 5 mg) PO ONCE 1 day escitalopram oxalate 20 mg PO DAILY polyethylene glycol 3350 (Miralax) 238 grams PO ONCE Tobacco use date assessed: 04/07/23 Dental Screening Dental Screen Date: 04/07/23 HPI 6 month follow up HPI Details Patient is 63-year-old female came in today for her regular follow-up Patient has stopped using Lexapro, patient says that she was feeling blunted emotions with the medication She has no anxiety or depression at this time She is using ProAir inhaler as needed and is doing well Requesting medication for allergies which I have sent for her Patient has impaired fasting sugar, I have ordered labs for her to be done today. Need to lose weight BMI is elevated at 33.8 She has appointment in January for physical exam. Offer no other complaints PFSH Surgical History No pertinent past surgical history Family History Father Brain cancer Social History Housing: Apartment Patient Tobacco Use Status: Never used Tobacco e-Cigarette/Vaping Use: Never Used service: No Current occupational status: unemployed Cognitive needs: No Hearing needs: No Vision needs: No Questionnaire Thrive Questionnaire Date Thrive assessed: 04/07/23 DAMON-7 AMB Questionnaire DAMON-7 Date DAMON - 7 assessed: 04/07/23 Source: Developed by Drs. Miguel Jamse, Debra Choi, Kevan Faye and colleagues, with an educational susanna from [employer]. Review of Systems Const Denies chills and Denies fever(s) ENT Denies epistaxis and Denies nasal discharge Card Denies chest pain Resp Denies chest congestion, Denies cough and Denies hemoptysis GI Denies diarrhea and Denies nausea Skin/Breast Denies rash Neuro Reports no additional complaints Psych Reports no additional complaints Endo Reports no additional complaints Physical exam (Primary Care) Vital Signs: Last Vital Signs Pulse 68 08/25/23 12:04 BP 120/90 H 08/25/23 12:04 Pulse Ox 97 08/25/23 12:04 Oxygen Delivery Method Room Air 08/25/23 12:04 BMI result Body Mass Index 33.8 Tobacco/Smoking Status: Tobacco use Status Tobacco use date assessed 04/07/23 08/25/23 12:03 Patient Tobacco Use Status Never used Tobacco 08/25/23 12:03 e-Cigarette/Vaping Use Never Used 08/25/23 12:03 Thrive Assessment: Date of Thrive Assessment Date Thrive assessed 04/07/23 08/25/23 12:03 Const General: cooperative, comfortable and no acute distress Orientation/consciousness: patient oriented x3 HENMT Head: Yes normocephalic Eyes General: appearance normal, both eyes and all related structures Neck Neck: Yes supple Resp Effort & Inspection: normal respiratory effort, no cough and no stridor Cardio Rhythm: regular rhythm Heart sounds: S1 normal heart sound present and S2 normal heart sound present Skin General skin exam: turgor normal Neuro General: patient oriented x3, tone normal and moves all extremities Extrem Right lower extremity: no edema Left lower extremity: no edema Assessment and Plan Assessment & Plan (1) Major depression, recurrent: Code(s): F33.9 - Major depressive disorder, recurrent, unspecified Qualifiers: Active/Remission status: in full remission Qualified Code(s): F33.42 - Major depressive disorder, recurrent, in full remission (2) Obesity due to excess calories: Code(s): E66.09 - Other obesity due to excess calories Qualifiers: Body mass index: BMI 35.0-35.9 Obesity classification: adult class 2 (BMI 35 - 39.9) Serious obesity comorbidity presence: with serious comorbidity Qualified Code(s): E66.01 - Morbid (severe) obesity due to excess calories; Z68.35 - Body mass index [BMI] 35.0-35.9, adult (3) Elevated blood pressure reading: Code(s): R03.0 - Elevated blood-pressure reading, without diagnosis of hypertension (4) Asthma, mild intermittent: Code(s): J45.20 - Mild intermittent asthma, uncomplicated Qualifiers: Asthma complication type: uncomplicated Qualified Code(s): J45.20 - Mild intermittent asthma, uncomplicated (5) Impaired fasting blood sugar: Code(s): R73.01 - Impaired fasting glucose (6) Environmental allergies: Code(s): Z91.09 - Other allergy status, other than to drugs and biological substances Plan Patient is 63-year-old female came in today for her regular follow-up Patient has stopped using Lexapro, patient says that she was feeling blunted emotions with the medication She has no anxiety or depression at this time She is using ProAir inhaler as needed and is doing well Requesting medication for allergies which I have sent for her Patient has impaired fasting sugar, I have ordered labs for her to be done today. Need to lose weight BMI is elevated at 33.8 She has appointment in January for physical exam. Offer no other complaints Orders: Orders Complete Blood Count Auto Diff Today E66.01 - Morbid (severe) obesity due to excess calories, F33.1 - Major depressive disorder, recurrent, moderate, J45.20 - Mild intermittent asthma, uncomplicated, R03.0 - Elevated blood-pressure reading, without diagnosis of hypertension, R73.01 - Impaired fasting glucose, Z68.35 - Body mass index [BMI] 35.0-35.9, adult Comprehensive Met. Panel Today E66.01 - Morbid (severe) obesity due to excess calories, F33.1 - Major depressive disorder, recurrent, moderate, J45.20 - Mild intermittent asthma, uncomplicated, R03.0 - Elevated blood-pressure reading, without diagnosis of hypertension, R73.01 - Impaired fasting glucose, Z68.35 - Body mass index [BMI] 35.0-35.9, adult Hemoglobin A1c Today E66.01 - Morbid (severe) obesity due to excess calories, F33.1 - Major depressive disorder, recurrent, moderate, J45.20 - Mild intermittent asthma, uncomplicated, R03.0 - Elevated blood-pressure reading, without diagnosis of hypertension, R73.01 - Impaired fasting glucose, Z68.35 - Body mass index [BMI] 35.0-35.9, adult Medications: New cetirizine (Wal-Zyr (cetirizine)) 10 mg PO DAILY PRN 90 tabs 1RF allergy symptoms Refilled albuterol sulfate 90 mcg/actuation (Ventolin HFA) 1 inh inhalation QID PRN 6.7 grams 6RF shortness of breath or wheezing 30 days Coding Level of Care Code Est Pt Level 4 (76796) Diagnoses Recurrent major depressive disorder, in full remission F33.42 Active/Remission status: in full remission Class 2 severe obesity due to excess calories with serious comorbidity and body mass index (BMI) of 35.0 to 35.9 in adult E66.01; Z68.35 Body mass index: BMI 35.0-35.9 Obesity classification: adult class 2 (BMI 35 - 39.9) Serious obesity comorbidity presence: with serious comorbidity Elevated blood pressure reading R03.0 Mild intermittent asthma without complication J45.20 Asthma complication type: uncomplicated Impaired fasting blood sugar R73.01 Environmental allergies Z91.09
[2023-08-25 12:04] VITALS: BP 120/90; PULSE 68; O2SAT 97; BMI 33.8
== END 2023-08-25 16:11 | disposition home or self-care (01) ==
PROVIDERS: PCP Internal Medicine; Visit Provider Internal Medicine
DX: F33.42 Major depressive disorder, recurrent, in full remission (principal); E66.01 Morbid (severe) obesity due to excess calories; Z68.35 Body mass index [BMI] 35.0-35.9, adult; R03.0 Elevated blood-pressure reading, without diagnosis of hypertension; J45.20 Mild intermittent asthma, uncomplicated; R73.01 Impaired fasting glucose; Z91.09 Other allergy status, other than to drugs and biological substances
CPT/HCPCS: 99214

== ENCOUNTER 2023-09-06 15:04 | Outpatient (REF) | payer OTHER, SELFPAY ==
[2023-09-06 16:17] LABS: MANUAL DIFF FLAG NO
[2023-09-06 16:25] LABS: Basophils Percent Auto 0.5 % (0-2); Eosinophils Absolute Auto 0.6 X10*3/uL (0.0-0.4); Eosinophils Percent Auto 7.7 % (0-4); Hematocrit 38.8 % (37.0-47.0); Imm Gran Abs Auto 0.01 X10*3/uL (0.00-0.03); Imm Gran Pct Auto 0.1 % (0.0-0.4); Lymphocytes Absolute Auto 3.2 X10*3/uL (1.2-4.9); Lymphocytes Percent Auto 41.6 % (20-40); Mean Corpuscular HGB Conc 33.5 g/dl (31.0-35.0); Mean Corpuscular Hemoglobin 28.6 pg (27.0-33.0); Mean Corpuscular Volume 85.5 fL (80.0-98.0); Mean Platelet Volume 10.7 fL (9.4-12.3); Monocytes Absolute Auto 0.4 X10*3/uL (0.1-1.2); Monocytes Percent Auto 5.6 % (2-11); Neutrophils Absolute Auto 3.4 x10*3/uL (2.0-8.3); Neutrophils Percent Auto 44.5 % (45-73); Platelet Count 285 X10*3/uL (160-400); Red Blood Count 4.54 X10*6/uL (4.20-5.50); Red Cell Distribution Width 12.5 % (11.0-16.0); White Blood Count 7.7 X10*3/uL (4.8-10.8)
[2023-09-06 16:34] LABS: Estimated Average Glucose 111 mg/dL; Hemoglobin A1c % 5.5 % (<6.0)
[2023-09-06 16:45] LABS: Alanine Aminotransferase 9 U/L (0-31); Albumin Level 4.3 g/dL (3.5-5.0); Alkaline Phosphatase 81 U/L (39-117); Anion Gap 14 (12-20); Aspartate Amino Transferase 12 U/L (5-31); Bilirubin Total 0.2 mg/dL (0.0-1.0); Blood Urea Nitrogen 14 mg/dL (9-16); Calcium 9.6 mg/dL (8.4-10.2); Carbon Dioxide 22 mmol/L (22-29); Chloride 109 mmol/L (96-108); Estimated Glomerular Filt Rate > 60; Glucose Random 96 mg/dL (60-115); Potassium 4.1 mmol/L (3.3-5.1); Sodium 141 mmol/L (135-145); Total Protein 7.2 g/dL (6.5-8.0)
== END 2023-09-06 15:05 | disposition home or self-care (01) ==
LOC: HO.HMGCLDS 15:04
PROVIDERS: PCP Internal Medicine; Visit Provider Internal Medicine
DX: F33.1 Major depressive disorder, recurrent, moderate (principal); E66.01 Morbid (severe) obesity due to excess calories; Z68.35 Body mass index [BMI] 35.0-35.9, adult; R03.0 Elevated blood-pressure reading, without diagnosis of hypertension; J45.20 Mild intermittent asthma, uncomplicated; R73.01 Impaired fasting glucose
CPT/HCPCS: 36415; 80053; 83036; 85025

== ENCOUNTER 2023-09-14 08:45 | Outpatient (AMB) | payer OTHER, SELFPAY ==
[2023-09-14 08:51] VITALS: BP 130/80; PULSE 68; TEMP 36.3; O2SAT 99; BMI 34.2
--- NOTE | 2023-09-14 08:51 | MHC.OFFWIV ---
Intake Vital Signs 09/14/23 08:51 Height 5 ft 2 in Weight 187 lb BMI 34.2 BP 130/80 Blood Pressure Location Lt brachial Position Sitting Pulse 68 Pulse Source Pulse Oximeter Temp 97.4 F Temp Source Temporal Artery Scan Pulse Oximetry (%) 99 Oxygen Delivery Method Room Air Intake Visit Reasons: EP heart palpitations, diff breathing, fatigue Intake Note: pt is here today for heart palpitation diff breathing fatigue started today Patient Tobacco Use Status: Never used Tobacco Allergies No Known Allergies Allergy (Verified 09/14/23 08:54) Do you need a note to return to daycare/school/sports/work: Yes HPI HPI Comments History of Present Illness Details Patient is a 63-year-old female complaining of an incident that happened this morning while she was at work pushing a cart. She states that she suddenly got heart palpitations, felt fatigued and had difficulty breathing. She states the cart was not that heavy. She denied any outright chest pain in that moment, neck pain, arm pain or back pain. She states she feels better now but she has some residual fatigue. [facility] Surgical History No pertinent past surgical history Family History Father Brain cancer Social History Housing: Apartment Patient Tobacco Use Status: Never used Tobacco e-Cigarette/Vaping Use: Never Used service: No Current occupational status: unemployed Cognitive needs: No Hearing needs: No Vision needs: No Review of Systems Const All systems reviewed & are unremarkable except as noted in HPI and below Physical Exam Vital Signs: Last Vital Signs Temp 97.4 F 09/14/23 08:51 Pulse 68 09/14/23 08:51 BP 130/80 09/14/23 08:51 Pulse Ox 99 09/14/23 08:51 Oxygen Delivery Method Room Air 09/14/23 08:51 BMI result Body Mass Index 34.2 Office Procedures EKG 30801-[id number], Complete Assessment & Plan Assessment & Plan (1) Heart palpitations: Code(s): R00.2 - Palpitations Plan: EKG in office NSR 62BPM. As symptoms have resolved, recommended the next time it happens for her to call 911 or go to the emergency department. Did advise she could go to the ED right now to have troponins drawn and explained what those are, she states that she feels fine, she probably will not go. Sent note to primary care doctor to advise for further workup, stress test, etc. Plan see above Coding Level of Care Code Est Pt Level 3 (21619) Diagnoses Heart palpitations R00.2 CPT Codes EKG - CPT: 67802-[id number], Complete ([id number])
== END 2023-09-14 09:47 | disposition home or self-care (01) ==
PROVIDERS: PCP Internal Medicine; Visit Provider Physician Assistant
DX: R00.2 Palpitations (principal)
CPT/HCPCS: 93000; 99213

== ENCOUNTER 2023-09-15 14:13 | Outpatient (AMB) | payer OTHER, SELFPAY ==
--- NOTE | 2023-09-15 14:17 | A.OFFPC_ITS ---
Vital Signs 09/15/23 14:18 Height 5 ft 2 in Weight 187 lb BMI 34.2 BP 140/90 H Blood Pressure Location Rt brachial Position Sitting Pulse 60 Pulse Source Pulse Oximeter Pulse Oximetry (%) 98 Oxygen Delivery Method Room Air Intake Visit Reasons: Heart Palpitations~ Allergies No Known Allergies Allergy (Verified 09/15/23 14:19) Medication List - Last Reconciled 09/15/23 by Zeenat Price MD albuterol sulfate 90 mcg/actuation (Ventolin HFA) 1 inh inhalation QID PRN 30 days bisacodyl (Dulcolax (bisacodyl)) 20 mg (4 x 5 mg) PO ONCE 1 day cetirizine (Wal-Zyr (cetirizine)) 10 mg PO DAILY PRN escitalopram oxalate 20 mg PO DAILY polyethylene glycol 3350 (Miralax) 238 grams PO ONCE Tobacco use date assessed: 04/07/23 Dental Screening Dental Screen Date: 04/07/23 HPI Heart Palpitations~ HPI Details Patient is 63-year-old female came in today to be evaluated after being seen in walk-in clinic yesterday Patient presented with a chief complaint of palpitation EKG done in walk-in clinic showed normal sinus rhythm with 64 beats per minute as per providers note Patient tells me 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, she works in a laundry department, 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 We will re-evaluate after that Meanwhile patient is aware that if it happened again she should call 911 and go to emergency room. [facility] Surgical History No pertinent past surgical history Family History Father Brain cancer Social History Housing: Apartment Patient Tobacco Use Status: Never used Tobacco e-Cigarette/Vaping Use: Never Used service: No Current occupational status: unemployed Cognitive needs: No Hearing needs: No Vision needs: No Questionnaire Thrive Questionnaire Date Thrive assessed: 04/07/23 DAMON-7 AMB Questionnaire DAMON-7 Date DAMON - 7 assessed: 04/07/23 Source: Developed by Drs. Miguel James, Debra Choi, Kevan Faye and colleagues, with an educational susanna from [employer]. Review of Systems Const Denies chills and Denies fever(s) ENT Denies epistaxis and Denies nasal discharge Card Denies chest pain Resp Denies chest congestion, Denies cough and Denies hemoptysis GI Denies diarrhea and Denies nausea Skin/Breast Denies rash Neuro Reports no additional complaints Psych Reports no additional complaints Endo Reports no additional complaints Physical exam (Primary Care) Vital Signs: Last Vital Signs Pulse 60 09/15/23 14:18 BP 140/90 H 09/15/23 14:18 Pulse Ox 98 09/15/23 14:18 Oxygen Delivery Method Room Air 09/15/23 14:18 BMI result Body Mass Index 34.2 Tobacco/Smoking Status: Tobacco use Status Tobacco use date assessed 04/07/23 09/15/23 14:20 Patient Tobacco Use Status Never used Tobacco 09/15/23 14:20 e-Cigarette/Vaping Use Never Used 09/15/23 14:20 Thrive Assessment: Date of Thrive Assessment Date Thrive assessed 04/07/23 09/15/23 14:20 Const General: cooperative, comfortable and no acute distress Orientation/consciousness: patient oriented x3 HENMT Head: Yes normocephalic Eyes General: appearance normal, both eyes and all related structures Neck Neck: Yes supple Resp Effort & Inspection: normal respiratory effort, no cough and no stridor Cardio Rhythm: regular rhythm Heart sounds: S1 normal heart sound present and S2 normal heart sound present Skin General skin exam: turgor normal Neuro General: patient oriented x3, tone normal and moves all extremities Extrem Right lower extremity: no edema Left lower extremity: no edema Assessment and Plan Assessment & Plan (1) Heart palpitations: Code(s): R00.2 - Palpitations Plan Patient is 63-year-old female came in today to be evaluated after being seen in walk-in clinic yesterday Patient presented with a chief complaint of palpitation EKG done in walk-in clinic showed normal sinus rhythm with 64 beats per minute as per providers note Patient tells me 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, she works in a laundry department, 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 We will re-evaluate after that Meanwhile patient is aware that if it happened again she should call 911 and go to emergency room. Orders: Orders ECG 3 day holter monitor Today R00.2 - Palpitations Coding Level of Care Code Est Pt Level 3 (03614) Diagnoses Heart palpitations R00.2
[2023-09-15 14:18] VITALS: BP 140/90; PULSE 60; O2SAT 98; BMI 34.2
== END 2023-09-15 15:02 | disposition home or self-care (01) ==
PROVIDERS: PCP Internal Medicine; Visit Provider Internal Medicine
DX: R00.2 Palpitations (principal)
CPT/HCPCS: 99213

== ENCOUNTER → 2023-10-06 12:28 | Outpatient (REF) | payer OTHER, SELFPAY ==
--- NOTE | 2023-10-06 12:31 | HM_ITS ---
Conclusion: 1. Patient was monitored for total period of 3 days 2. Baseline was normal sinus rhythm with average heart of 64 beats per minute 3. No significant pauses noted but frequent sinus bradycardia noted with about 39% of time heart rate below 60 beats per minute 4. Frequent PACs noted with total burden of 1.3% 5. Patient reported 1 event with no associated symptoms correlating with sinus tachycardia MTDD
== END ==
LOC: HO.CARD 12:28
PROVIDERS: PCP Internal Medicine; Visit Provider Internal Medicine
DX: R00.2 Palpitations (principal)
CPT/HCPCS: 93242

== ENCOUNTER → 2023-10-06 12:31 | Outpatient (BNV) | payer OTHER, SELFPAY | PROVIDERS: PCP Internal Medicine; Visit Provider Internal Medicine Cardiovascular Disease | DX: I49.1 Atrial premature depolarization (principal) | CPT/HCPCS: 93244 ==